=== PATIENT | female | born 1985 | race African-American/Black ===

== ENCOUNTER 2022-08-31 09:06 | Day surgery (SDC) | payer MEDICAID ==
[2022-08-24 11:39] LABS: BASOPHILS % (AUTO) 0.7 % (0-1); EOSINOPHILS % (AUTO) 0.4 % (0-6); LYMPHOCYTES # (AUTO) 1.7 X10'3 (1.1-4.8); MEAN CORPUSCULAR HEMOGLOBIN 32.4 PG (27.0-31.0); MEAN CORPUSCULAR HGB CONC 33.9 g/dL (33.0-36.5); MEAN CORPUSCULAR VOLUME 95.6 FL (78-98); MEAN PLATELET VOLUME 7.7 FL (7.4-10.4); MONOCYTES # (AUTO) 0.3 X10'3 (0-0.9); MONOCYTES % (AUTO) 4.6 % (2-12); NEUTROPHILS # (AUTO) 3.6 X10'3 (1.8-7.7); NEUTROPHILS % (AUTO) 64.3 % (42-75); PRE OP HEMATOCRIT 32.7 % (35.0-45.0); PRE OP HEMOGLOBIN 11.1 g/dL (12.0-16.0); PRE OP PLATELET COUNT 279 X10'3 (140-440); RED BLOOD COUNT 3.42 X10'6 (4.20-5.60); RED CELL DISTRIBUTION WIDTH 12.7 % (11.5-14.5)
[2022-08-24 11:50] LABS: ALBUMIN 3.6 G/DL (3.4-5.0); ALBUMIN/GLOBULIN RATIO 0.9 (1.1-1.5); ALKALINE PHOSPHATASE 40 IU/L (46-116); BLOOD UREA NITROGEN 6 MG/DL (7-18); BUN/CREATININE RATIO 6.9 (6.6-38.0); CHLORIDE 103 MMOL/L (99-107); CREATININE 0.87 MG/DL (0.40-0.90); PRE OP ALT 15 U/L (30-65); PRE OP ANION GAP 10 (8-16); PRE OP AST 16 U/L (10-37); PRE OP BILIRUB, TOTAL 0.5 MG/DL (0.0-1.0); PRE OP GLUCOSE 79 MG/DL (70-104); PRE OP SODIUM 141 MMOL/L (135-145); TOTAL CARBON DIOXIDE 27.9 MMOL/L (24-32); TOTAL PROTEIN 7.5 G/DL (6.4-8.2); eGFR 90 ML/MIN
[2022-08-24 12:12] LABS: HCG SERUM QL NEGATIVE
[2022-08-31] VITALS (11 sets, daily range): BP systolic 95–117; BP diastolic 56–76
[~2022-08-31] VITALS: Ht 160 cm; Wt 84.9 kg
[~2022-08-31 09:06] MED LIST: ANTIBIOTIC PO; ceFOXitin 2GM-NS 100mL ADDvant 100 ML IV ONE; famotidine 20mg tablet PO ONE; ringers solution, lacted 1,000 ML IV SCH
[2022-08-31] MEDS ORDERED: vasoPRESSIN 20 units/ml inj. ONE (13:37)
[2022-08-31] MEDS ORDERED: LIDOCAINE 1%/EPI 1:100,000 inj. 10 ML multi-dose vial ONE (13:37)
[2022-08-31] MEDS ORDERED: dexamethasone sod phosphate 10mg/ml inj ONE (14:21)
[2022-08-31] MEDS ORDERED: sevoflurane 250ml liquid IH ONE (14:21)
[2022-08-31] MEDS ORDERED: fentaNYL/PF 50MCG/1 ML 2ML syringe ONE (14:22)
[2022-08-31] MEDS ORDERED: midazolam 1 mg/ML 2ml injection ONE (14:22)
[2022-08-31] MEDS ORDERED: propofol inj 20 ML IV ONE (14:31)
[2022-08-31] MEDS ORDERED: LIDOcaine 2% (20mg/ml) 5ml vial ONE (14:31)
[2022-08-31] MEDS ORDERED: ondansetron/PF 4mg/2ml inj ONE (14:34)
[2022-08-31] MEDS ORDERED: ondansetron/PF 4mg/2ml inj IV PRN (14:50)
[2022-08-31] MEDS ORDERED: morphine 2 MG/ML inj. syringe IV PRN (14:50)
[2022-08-31] MEDS ORDERED: fentaNYL/PF 50MCG/1 ML 2ML syringe IV PRN ×2 (14:50)
[2022-08-31] MEDS ORDERED: ringers solution, lacted 1,000 ML IV SCH (14:50)
[2022-08-31] MEDS ORDERED: labetalol 20mg/4ml (5mg/ml) syringe IV PRN (14:50)
[2022-08-31] MEDS ORDERED: morphine 4 MG/ML inj SYRINge IV PRN (14:50)
[2022-08-31] MEDS ORDERED: hydrALAZINE 20mg/ml inj. IV PRN (14:50)
--- NOTE | 2022-08-31 15:39 | NUR ---
Received from OR via [facility], accompanied by Anesthesiologist DR MUJICA and report given by Anesthesiologist AND INCIDENT ENGINEER. PT VERY DROWSY, NO S/S OF DISTRESS/DISCOMFORT. MAEGAN PAD IN PLACE. Addendum: 08/31/22 at 1605 by Caitlin Sandoval RN Amended: Links added.
[2022-08-31] MEDS ORDERED: oxyCODONE/APAP 5-325mg tablet PO ONE ×2 (15:50)
[2022-08-31] MEDS ORDERED: ibuprofen tablet 400 MG TABLET PO ONE (16:50)
--- NOTE | 2022-08-31 17:09 | NUR ---
PT DOING WELL, DRESSED AND WAITING FOR RIDE, VSS, PAIN 02/01-GIVEN IBUPROFEN ORDERED, GIVEN FRESH MAEGAN PAD-NO EXCESSIVE BLEEDING NOTED, GIVEN D/C INSTRUCTIONS-ALL QUESTIONS ANSWERED, TAKEN VIA W/C TO VEHICLE WITH ALL BELONGINGS FOR TRANSPORT HOME.
== END 2022-08-31 17:09 | disposition home or self-care (01) ==
LOC: PAS 09:06
PROVIDERS: ATTEND Obstetrics & Gynecology
DX: D26.0 Other benign neoplasm of cervix uteri (principal); Z79.899 Other long term (current) drug therapy; Z98.890 Other specified postprocedural states; Z20.822 Contact with and (suspected) exposure to COVID-19
CPT/HCPCS: 36415; 58145; 58558; 80053; 82948; 84703; 85025; 86885; 86900; 86901; 87811; J0694; J1100; J2250; J2270; J2405; J2704; J3010; J3490; J7030; J7120; Z7506; Z7508; Z7512; A4355; A4618; A7000